=== PATIENT | male | born 1930 | race Caucasian/White ===

== ENCOUNTER 2018-07-09 11:42 | Emergency (ER) | payer MEDICARE, OTHER ==
[~2018-07-09] VITALS: Ht 177.8 cm; Wt 82.0 kg
[2018-07-09 11:42] VITALS: BP 122/63
[~2018-07-09 11:42] MED LIST: ASPI-496 PO; DOXY100T PO; ENAL2.5T PO; LOVA40TA2 PO; METO25TA91 PO; NITR0.4T SL
--- NOTE | 2018-07-09 11:42 | NUR ---
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
--- NOTE | 2018-07-09 11:52 | NUR ---
CAREGIVER ARRIVED AT BS.
[2018-07-09] MEDS ORDERED: ELIQUIS (11:55)
[2018-07-09] MEDS ORDERED: ATORVASTATIN (11:55)
[2018-07-09] MEDS ORDERED: ENTRESTO (11:55)
[2018-07-09] MEDS ORDERED: METOPROLOL (11:55)
[2018-07-09 12:07] LABS: BASOPHILS # (AUTO) 0.06 x10^3/uL (0-0.1); BASOPHILS % (AUTO) 1 % (0-1); EOSINOPHILS # (AUTO) 0.08 x10^3/uL (0-0.4); EOSINOPHILS % (AUTO) 1 % (1-7); LYMPHOCYTES # (AUTO) 1.89 x10^3/uL (1-3.4); LYMPHOCYTES % (AUTO) 23 % (22-44); MD NO; MEAN CORPUSCULAR HEMOGLOBIN 33.2 pg (27.5-34.5); MEAN CORPUSCULAR HGB CONC 34.4 g/dL (33.2-36.2); MEAN CORPUSCULAR VOLUME 96.5 fL (81-97); MEAN PLATELET VOLUME 8.4 fL (7.4-10.4); MONOCYTES # (AUTO) 1.03 x10^3/uL (0.2-0.8); MONOCYTES % (AUTO) 13 % (2-9); NEUTROPHILS # (AUTO) 5.15 x10^3/uL (1.8-6.8); NEUTROPHILS % (AUTO) 63 % (42-75); PLATELET COUNT 246 x10^3/uL (130-400); RED BLOOD COUNT 3.49 x10^6/uL (4.38-5.82); RED CELL DISTRIBUTION WIDTH 12.5 % (9.4-14.8)
[2018-07-09 12:16] LABS: INTERNATIONAL NORMALIZED RATIO 1.14 (0.93-1.1); PROTHROMBIN TIME 11.9 Seconds (9.6-11.5)
[2018-07-09 12:20] LABS: ALANINE AMINOTRANSFERASE 23 U/L (12-78); ANION GAP 7 mmol/L (5-15); CALCIUM 9.8 mg/dL (8.5-10.1); CHLORIDE 109 mmol/L (98-107); CREATININE 2.16 mg/dL (0.7-1.3)
--- NOTE | 2018-07-09 12:21 | NUR ---
ATTEMPTING A UA COLLECTION AT THIS TIME
[2018-07-09 12:23] LABS: ALKALINE PHOSPHATASE 103 U/L (45-117); BILIRUBIN,TOTAL 1.1 mg/dL (0.2-1.0); TOTAL PROTEIN 6.8 g/dL (6.4-8.2)
[2018-07-09 12:54] LABS: MICROSCOPIC NOT IND
[2018-07-09 12:55] LABS: CULTURE INDICATED? NO
--- NOTE | 2018-07-09 13:06 | NUR ---
PT RESTING NADA UA HAS BEEN SENT
--- NOTE | 2018-07-09 13:07 | NUR ---
PT REPORTS " I FEEL GREAT"
== END 2018-07-09 14:55 | disposition home or self-care (01) ==
LOC: ED 14:50
DX: K85.00 Idiopathic acute pancreatitis without necrosis or infection (principal); E78.00 Pure hypercholesterolemia, unspecified; I10 Essential (primary) hypertension; I25.2 Old myocardial infarction; Z86.73 Personal history of transient ischemic attack (TIA), and cerebral infarction without residual deficits; Z95.1 Presence of aortocoronary bypass graft; Z95.0 Presence of cardiac pacemaker
CPT/HCPCS: 36415; 74022; 80053; 81003; 83690; 85025; 85610; 93005; 99284